=== PATIENT | female | born 1965 | race Caucasian/White ===

== ENCOUNTER 2017-01-06 11:06 | Emergency (ER) | payer MEDICARE, MEDICAID ==
[~2017-01-06] VITALS: Ht 170.2 cm; Wt 86.2 kg
[~2017-01-06 11:06] MED LIST: CETI10TA80 PO; GABA-494 PO; QUET50TA PO; SERT-160 PO; TIZA4TAB9 PO
[2017-01-06 11:45] VITALS: BP 118/70
== END 2017-01-06 12:56 | disposition home or self-care (01) ==
LOC: ER 11:06
DX: S09.90XA Unspecified injury of head, initial encounter (principal); W22.8XXA Striking against or struck by other objects, initial encounter; Y93.89 Activity, other specified; Y92.89 Other specified places as the place of occurrence of the external cause; Y99.8 Other external cause status
CPT/HCPCS: 70450